=== PATIENT | female | born 1950 | race Caucasian/White ===

== ENCOUNTER 2024-02-07 12:05 | Emergency (ER) | payer OTHER, BC ==
[2024-02-07 12:19] VITALS: BP 159/84; PULSE 61; RESP 18; TEMP 97.8; BMI 38.2
[2024-02-07] MEDS ORDERED: CEPHALEXIN MONOHYDRATE 500 MG CAPSULE (UD) PO ONE (12:33)
[2024-02-07] MEDS ORDERED: CEPHALEXIN MONOHYDRATE 500 MG CAPSULE (UD) ONE (12:35)
[2024-02-07] MEDS ORDERED: CLINDAMYCIN HCL 150 MG CAPSULE (FP) ONE (12:43)
[2024-02-07] MEDS: CLINDAMYCIN HCL 300 MG CAPSULE PO ONE (12:45)
== END 2024-02-07 12:50 | disposition home or self-care (01) ==
LOC: FER 12:05
DX: R21 Rash and other nonspecific skin eruption (principal); L03.221 Cellulitis of neck
CPT/HCPCS: 99283-25